=== PATIENT | male | born 1950 | race African-American/Black ===

== ENCOUNTER 2020-03-15 05:02 | Emergency (ER) | payer MEDICARE, MEDICAID ==
[~2020-03-15] VITALS: Ht 175.3 cm; Wt 57.0 kg
[2020-03-15 06:21] LABS: CHLORIDE 109 mEq/L (98-107)
[2020-03-15] MEDS ORDERED: MORPHINE SULFATE 4 MG/ML CPJ (NOT FOR IM USE) IV STA (09:34)
[2020-03-15] MEDS ORDERED: ONDANSETRON HCL 4MG/2ML INJ IV STA (09:34)
[2020-03-15] MEDS ORDERED: SODIUM CHLORIDE 0.9% 1,000 ML IV ONE (09:45)
[2020-03-15 09:59] LABS: CLARITY URINE CLOUDY (CLEAR); COLOR URINE YELLOW (YELLOW); KETONES URINE NEGATIVE (NEGATIVE); LEUKOCYTE ESTERASE URINE 2+ (NEGATIVE); NITRITE URINE NEGATIVE (NEGATIVE); OCCULT BLOOD URINE 1+ (NEGATIVE); PROTEIN URINE NEGATIVE (NEGATIVE); SPECIFIC GRAVITY URINE 1.012 (1.005-1.030); UROBILINOGEN URINE 0.2 E.U./dL (0.2-1.0)
[2020-03-15] MEDS ORDERED: MORPHINE SULFATE 4 MG/ML CPJ (NOT FOR IM USE) IV ONE (11:45)
[2020-03-15] MEDS ORDERED: ATROPINE SULFATE 1MG/10ML SYR ONE ×2 (12:00→13:00)
[2020-03-15] MEDS ORDERED: DEXTROSE 50% WATER 50ML SYRINGE IV ONE ×3 (12:00→14:00)
[2020-03-15] MEDS ORDERED: EPINEPHRINE 0.1MG/ML (1:10,000) 10ML SYR ONE ×3 (12:00→14:00)
[2020-03-15] MEDS ORDERED: NA PHOS,M-B/NA PHOS,DI-BA ENEMA 118ML PR PRN (12:15)
[2020-03-15] MEDS ORDERED: TRAMADOL 50MG TABLET PO PRN ×2 (12:15→17:00)
[2020-03-15] MEDS ORDERED: IPRATROPIUM/ALBUTEROL 0.5-3(2.5)MG/3ML NEB NEB PRN (12:15)
[2020-03-15] MEDS ORDERED: GUAIFENESIN 200MG/10ML SUGAR FREE UDC PO PRN (12:15)
[2020-03-15] MEDS ORDERED: DOCUSATE SODIUM 100MG CAPSULE PO PRN (12:15)
[2020-03-15] MEDS ORDERED: ONDANSETRON HCL 4MG/2ML INJ IV PRN (12:15)
[2020-03-15] MEDS ORDERED: NITROGLYCERIN 0.4MG TABLET SL SL PRN (12:15)
[2020-03-15] MEDS ORDERED: KETOROLAC 15MG/ML VIAL IV PRN (12:15)
[2020-03-15] MEDS ORDERED: ENOXAPARIN 40MG/0.4ML SYR SUBCUT SCH (12:15)
[2020-03-15] MEDS ORDERED: ACETAMINOPHEN 325MG TABLET PO PRN ×2 (12:15)
[2020-03-15] MEDS ORDERED: CLONIDINE 0.1MG TABLET PO PRN (12:15)
[2020-03-15] MEDS ORDERED: MAGNESIUM/ALUMINUM HYDROXIDE/SIMETHICONE 30ML UDC PO PRN (12:15)
[2020-03-15] MEDS ORDERED: CEFTRIAXONE 1 G PREMIX 50 ML IV SCH (12:30)
[2020-03-15] MEDS ORDERED: SODIUM BICARBONATE 8.4% 1 MEQ/ML 50ML SYR IV ONE ×3 (12:45→14:00)
[2020-03-15] MEDS ORDERED: SODIUM POLYSTYRENE SULFONATE 15 G/60 ML BOT PO ONE (12:45)
[2020-03-15] MEDS ORDERED: METOCLOPRAMIDE HCL 5MG TABLET PO SCH (12:50)
[2020-03-15 13:00] LABS: MEAN CORPUSCULAR HEMOGLOBIN 25.5 pg (28.0-32.0); MEAN CORPUSCULAR VOLUME 82.2 fL (80.0-94.0); MEAN PLATELET VOLUME 7.5 fl (7.4-10.4); PLATELET 587 x1000/uL (130-400); RED CELL DISTRIBUTION WIDTH 20.1 % (11.6-14.6)
[2020-03-15] MEDS ORDERED: AMIODARONE HCL 50MG/ML 3ML VIAL IV ONE (13:00)
[2020-03-15] MEDS ORDERED: CALCIUM CHLORIDE 1GM/10ML SYR IV ONE ×2 (13:00→14:00)
[2020-03-15] MEDS ORDERED: FAMOTIDINE 20MG TABLET PO SCH ×2 (13:00→21:00)
[2020-03-15] MEDS ORDERED: NA PHOS,M-B/NA PHOS,DI-BA ENEMA 118ML PR SCH (13:00)
[2020-03-15] MEDS ORDERED: SODIUM CHLORIDE 0.9% 1,000 ML IV SCH (13:00)
[2020-03-15] MEDS ORDERED: AZITHROMYCIN 500 MG in DEXT 5% WATER 250 ML IV SCH (13:00)
[2020-03-15 13:11] LABS: HEMOGLOBIN. 5.3 g/dL (14.0-18.0)
[2020-03-15 13:12] LABS: HEMATOCRIT. 17.2 % (42.0-52.0)
[2020-03-15 13:31] LABS: NUCLEATED RED BLOOD CELLS 1 /100 WBC; PLATELET ESTIMATE INCREASED
[2020-03-15 14:12] LABS: FOLIC ACID (FOLATE) SERUM 11.4 ng/mL (>5.38)
[2020-03-15] MEDS ORDERED: LACTULOSE 20G/30ML UDC PO SCH (16:00)
[2020-03-15] MEDS: DILTIAZEM HCL 60MG TABLET PO SCH ×2 (17:04→18:00)
[2020-03-15] MEDS ORDERED: DEXT 5%/0.45% NACL 1000ML 1,000 ML IV SCH (18:00)
[2020-03-15] MEDS ORDERED: PANTOPRAZOLE SODIUM 40 MG/VIAL IV SCH (18:00)
[2020-03-15] MEDS ORDERED: DOPAMINE 400MG PREMIX 250ML IV PRN (19:00)
[2020-03-15] MEDS ORDERED: NOREPINEPHRINE 8MG/250ML PMX 250 ML IV ONE (19:15)
[2020-03-15] MEDS ORDERED: DOPAMINE 800MG PREMIX (DOUBLE) 250 ML IV PRN (19:15)
[2020-03-15] MEDS ORDERED: NOREPINEPHRINE 8 MG in DEXTROSE 5% WATER 250 ML IV PRN (19:30)
[2020-03-15] MEDS ORDERED: PROPOFOL 10MG/ML 100ML 100 ML IV SCH (19:30)
[2020-03-15] MEDS ORDERED: MIDAZOLAM HCL 100 MG in DEXT 5% WATER 80 ML IV ONE (19:45)
[2020-03-15] MEDS ORDERED: VASOPRESSIN 20 UNIT in SODIUM CHLORIDE 0.9% 99 ML IV PRN ×2 (19:45→20:00)
[2020-03-15] MEDS ORDERED: NOREPINEPHRINE 8MG/250ML PMX 250 ML IV SCH (19:45)
[2020-03-15] MEDS ORDERED: FENTANYL CITRATE/PF 50MCG/ML 2ML VIAL IV ONE (19:45)
[2020-03-15] MEDS ORDERED: NOREPINEPHRINE 8 MG in DEXT 5% WATER 242 ML IV PRN ×2 (19:45→20:00)
[2020-03-15] MEDS ORDERED: ALBUMIN HUMAN 25GM/100ML (25%) IV NR (20:00)
[2020-03-15] MEDS ORDERED: ZOLPIDEM TARTRATE 5MG TABLET PO PRN (20:00)
[2020-03-15] MEDS ORDERED: FENTANYL CITRATE/PF 2,500 MCG in SODIUM CHLORIDE 0.9% 200 ML IV PRN ×2 (20:15→20:45)
[2020-03-15] MEDS ORDERED: MIDAZOLAM HCL 100 MG in DEXT 5% WATER 80 ML IV PRN (20:15)
[2020-03-15 20:45] VITALS: BP 140/105
[2020-03-15 23:03] LABS: *AMPHETAMINES SCREEN URINE PRESUMTIVE POSITIVE (NEGATIVE); *BARBITURATES SCREEN URINE NEGATIVE (NEGATIVE)
[2020-03-15 23:04] LABS: *BENZODIAZEPINES SCREEN URINE NEGATIVE (NEGATIVE); *COCAINE SCREEN URINE NEGATIVE (NEGATIVE); CANNABINOID URINE SCREEN NEGATIVE (NEGATIVE); METHADONE URINE SCREEN NEGATIVE (NEGATIVE); OPIATES URINE SCREEN PRESUMTIVE POSITIVE (NEGATIVE); PHENCYCLIDINE URINE SCREEN NEGATIVE (NEGATIVE)
== END 2020-03-15 23:06 | disposition expired ==
LOC: ER 05:02 → EDBEDREQ 11:49 → EDBEDREQSVC 11:49 → SUPCPDRO 12:28 → EDBEDREQTM 20:05 → EDBEDREQSVC 20:05 → ER 23:06 → CANBEDREQ 03-16 09:26
DX: R41.82 Altered mental status, unspecified (principal); R51.9 Headache, unspecified; R10.9 Unspecified abdominal pain; K56.7 Ileus, unspecified; I25.10 Atherosclerotic heart disease of native coronary artery without angina pectoris; J44.9 Chronic obstructive pulmonary disease, unspecified; I11.0 Hypertensive heart disease with heart failure; I50.9 Heart failure, unspecified; Z95.1 Presence of aortocoronary bypass graft
CPT/HCPCS: 31500; 36415; 36556; 70450; 71045; 71048; 74176; 80053; 80061; 80305; 80320; 81003; 82607; 82746; 82962; 83036; 83540; 83550; 83605; 83615; 83690; 84145; 85025; 85379; 86850; 86900; 86901; 86920; 87040; 87086; 92950; 93005; 93970; 94660; 96361; 96365; 96375; 96376; 99291; C9113; J0282; J0461; J0696; J2250; J2270; J2405; J3490; J7030; J7060; J8597; 94003; J0456; J3010; J7050; P9016; P9047; G0480